=== PATIENT | male | born 1980 | race African-American/Black ===

== ENCOUNTER 2019-07-24 10:57 | Emergency (ER) | payer MEDICAID ==
[~2019-07-24] VITALS: Ht 170.2 cm; Wt 129.0 kg
[~2019-07-24 10:57] MED LIST: VITAMINS
[2019-07-24 11:08] VITALS: BP 148/99
[2019-07-24] MEDS ORDERED: CEPHALEXIN 250MG CAPSULE PO ONE (11:30)
== END 2019-07-24 11:46 | disposition home or self-care (01) ==
LOC: ER 10:57
DX: S61.211A Laceration without foreign body of left index finger without damage to nail, initial encounter (principal); W26.0XXA Contact with knife, initial encounter; Y93.89 Activity, other specified; Y92.89 Other specified places as the place of occurrence of the external cause; Y99.8 Other external cause status
CPT/HCPCS: 29130; 99283